=== PATIENT | male | born 1935 | race Caucasian/White ===

== ENCOUNTER 2017-05-18 17:46 | Observation (INO) ==
[2017-05-18] MEDS ORDERED: Levofloxacin 750 MG/150 ML 750 MG/150 ML BAG IVPB ONE (17:59)
[2017-05-18] MEDS ORDERED: 0.9 % Sodium Chloride 1,000 ML IVC ONE (17:59)
[2017-05-18 18:36] LABS: Basophils % 0.6 %; Eosinophils % 1.1 %; Hematocrit 34.2 % (37.5-50.1); Hemoglobin 11.9 g/dL (12.9-16.9); Immature Granulocytes % 0.3 % (0-4); Lymphocytes # 0.9 K/mcL (0.6-4.6); Lymphocytes % 24.7 %; Mean Corpuscular HGB Conc 34.8 g/dL (31.6-35.5); Mean Corpuscular Volume 86.1 fL (83.0-100.0); Mean Platelet Volume 10.9 fL (9.4-12.4); Monocytes # 0.5 K/mcL (0.0-1.3); Monocytes % 14.2 %; Neutrophils # 2.1 K/mcL (1.6-8.9); Platelet Count 174 K/mcL (140-400); Red Blood Count 3.97 M/mcL (4.19-5.50); Red Cell Distribution Width 13.3 % (11.5-14.5); Segmented Neutrophils % 59.1 %
[2017-05-18 18:42] LABS: INR 1.5; Prothrombin Time 16.1 Seconds (9.4-12.1)
[2017-05-18 18:49] LABS: VBG PCO2 41.9 mmHg (41-51); VBG PH 7.38 pH Units (7.32-7.42)
[2017-05-18 18:50] LABS: VBG HCO3 24.8 mEq/L (21-27); VBG PO2 32.7 mmHg (25-40)
[2017-05-18 18:54] LABS: Alanine Aminotransferase 16 Units/L (0-55); Albumin 3.6 g/dL (3.5-5.0); Albumin/Globulin Ratio 1.1 (1.1-2.2); Alkaline Phosphatase 103 Units/L (38-126); Aspartate Amino Transferase 33 Units/L (5-34); BUN/Creatinine Ratio 19 (6-26); Bilirubin,Direct 0.4 mg/dL (0.0-0.5); Bilirubin,Indirect 0.2 mg/dL (0.0-1.2); Bilirubin,Total 0.6 mg/dL (0.2-1.2); Blood Urea Nitrogen 15 mg/dL (8-26); Calcium 10.1 mg/dL (8.6-10.8); Carbon Dioxide 22 mEq/L (19-29); Chloride 103 mEq/L (98-109); Globulin 3.4 g/dL (2.4-3.5); Glucose 97 mg/dL (70-99); Osmolality,Calculated 283 (280-300); Potassium 3.8 mEq/L (3.5-4.5); Sodium 136 mEq/L (136-145); eGFR For African Americans > 60 (> 60); eGFR For Non-African Americans > 60 (> 60)
--- NOTE | 2017-05-18 18:55 | Emergency Department Note ---
Disposition Clinical Impression: Pneumonia Qualifiers: Pneumonia type: due to unspecified organism Laterality: right Lung location: lower lobe of lung Qualified Code(s): J18.1 - Lobar pneumonia, unspecified organism Disposition: Admitted As Inpatient Referrals: Heriberto Rice MD [Primary Care Provider] - Time of Disposition: 22:16 Fever HPI - General Stated Complaint: infection Time Seen by Provider: 05/18/17 17:59 Source: patient Mode of arrival: ambulatory Limitations: no limitations Nursing Notes Reviewed: Yes Vital Signs Reviewed: Yes - History of Present Illness HPI Narrative: Patient was sent over from Dr. Rice's office where he had been evaluated for fever and just not acting right. Dr. Rice called me indicating that this patient was weak and ataxic in his office. Seem to be just not acting right all the way was not frankly confused. When the patient arrived he told me that he had had a fever for the last 3 days that was highest in the morning and up to 101.4 yesterday he reports that he just has not felt well. He reports weakness and malaise. Has not really gotten out of bed. Did not have any appetite. He denies any specific focus of infection. He denies cough, headache, nasal drainage or sputum production, shortness of breath, chest pain, nausea, vomiting, or any dysuria or dark looking urine. He denies any skin changes or rash Pt Subjective Complaint: fever, malaise, weakness, rigors Onset (ago): day(s) (3) Maximum Temperature Reported: 101.4 F Temperature Source: oral Context: spontaneous Associated symptoms: Reports: chills, rigors, myalgias, night sweats. Denies: rhinorrhea, nasal congestion, sore throat, stiff neck, chest pain, abdominal pain, nausea, vomiting, rash, altered mental status Improves with: nothing Worsens with: time of day Treatments prior to arrival fever: none - Related Data Home Medications Medication Instructions Recorded Confirmed Gemfibrozil [Lopid] 600 mg PO BIDWM 07/20/15 05/18/17 Lisinopril [Zestril] 20 mg PO DAILY 07/20/15 05/18/17 Metoprolol [Lopressor] 50 mg PO BID 07/20/15 05/18/17 TraMADol [Ultram] 50 mg PO PRN PRN 07/20/15 05/18/17 Rivaroxaban [Xarelto] 20 mg PO DAILY 05/18/17 05/18/17 Allergies Allergy/AdvReac Type Severity Reaction Status Date / Time No Known Allergies Allergy Verified 05/18/17 18:29 All systems ED: reviewed and negative except as stated. Constitutional: Reports: fever, chills, weakness Fever PMH - Past Medical History Medical history: Reports: arthritis, atrial fibrillation, cancer, hepatitis, hypertension, valvular heart disease Surgical history: Reports: pacemaker/AICD Psychiatric history: Reports: no psych history - Social History Smoking Status: Former smoker Alcohol use: Reports: none Drug use: Reports: none Physical Exam Constitutional: Patient is oriented to person, place, and time. Skin color is pink. Appears well hydrated, body habitus normal appears younger than his stated age . Non toxic appearing. Head: Normocephalic and atraumatic. External ear exam normal Nose: Nose normal. Mouth/Throat: Uvula is midline, oropharynx is clear and moist and mucous membranes are normal. Eyes: Conjunctivae nl, extraocular motions and lids are normal. Pupils are equal , round, and reactive to light. Neck: Normal range of motion and phonation normal. Neck supple. Cardiovascular: Rapid rate, regular rhythm, normal heart sounds. Pulmonary/Chest: No Respiratory distress. Respiratory Effort normal and breath sounds clear. Abdominal: Soft. Normal appearance and bowel sounds are normal. no tenderness, no masses, no guarding, no rebound Musculoskeletal: Good distal pulses. Soft compartments. Brisk cap refill. Extremities: Normal range of motion.Intact peripheral pulses. No Edema. Extremity skin color nl, no calf tenderness or palpable cords. Neurological: GCS 15. Patient speech is clear and articulate. He has good strength in his arms and legs. When he gets up to walk though he seems weak and when he got to the bathroom he could not get off the toilet without significant assistance and he was unsteady to walk on his own. Krystal states this is very unusual for him. He lives at home and functions well. Patient is alert and oriented without evidence of obvious motor deficits Skin: Skin is warm, dry and intact. color is normal, cap refill is quick Psychiatric: Patient has normal mood and affect. Patient speech is normal and behavior is normal. Thought content normal. - General Limitations: no limitations General appearance: alert, in no apparent distress Course Vital Signs Temperature 97.8 F 05/18/17 17:59 Pulse Rate 77 05/18/17 17:59 Respiratory Rate 14 05/18/17 17:59 Blood Pressure 164/94 05/18/17 17:59 O2 Sat by Pulse Oximetry 99 05/18/17 17:59 Temperature 97.9 F 05/18/17 18:27 Pulse Rate 87 05/18/17 18:27 Respiratory Rate 16 05/18/17 18:27 Blood Pressure 154/72 05/18/17 18:27 O2 Sat by Pulse Oximetry 100 05/18/17 18:27 Oxygen Delivery Oxygen Delivery Room Air Fever - Medical Records Medical records reviewed: Yes I reviewed the patient's medical records. - Lab Data Lab results reviewed: Yes I reviewed the patient's lab results. Result diagrams: 05/18/17 18:30 05/18/17 18:30 Lab Results 05/18/17 05/18/17 05/18/17 Range/Units 18:30 18:30 18:30 WBC 3.6 L (4.3-11.1) K/mcL RBC 3.97 L (4.19-5.50) M/mcL Hgb 11.9 L (12.9-16.9) g/dL Hct 34.2 L (37.5-50.1) % MCV 86.1 (83.0-100.0) fL MCH 30.0 (28.0-33.3) pg MCHC 34.8 (31.6-35.5) g/dL RDW 13.3 (11.5-14.5) % Plt Count 174 (140-400) K/mcL MPV 10.9 (9.4-12.4) fL Immature Gran % 0.3 (0-4) % Seg Neutrophils % 59.1 % Lymphocytes % 24.7 % Monocytes % 14.2 % Eosinophils % 1.1 % Basophils % 0.6 % Neutrophils # 2.1 (1.6-8.9) K/mcL Lymphocytes # 0.9 (0.6-4.6) K/mcL Monocytes # 0.5 (0.0-1.3) K/mcL Eosinophils # 0.0 (0.0-0.6) K/mcL Basophils # 0.0 (0.0-0.2) K/mcL PT 16.1 H (9.4-12.1) Seconds INR 1.5 VBG pH (7.32-7.42) pH Units VBG pCO2 (41-51) mmHg VBG pO2 (25-40) mmHg VBG HCO3 (21-27) mEq/L VBG Lactic Acid (0.5-2.2) mmol/L Sodium 136 (136-145) mEq/L Potassium 3.8 (3.5-4.5) mEq/L Chloride 103 (98-109) mEq/L Carbon Dioxide 22 (19-29) mEq/L BUN 15 (8-26) mg/dL Creatinine 0.81 (0.72-1.25) mg/dL Est GFR ( Amer) > 60 (> 60) Est GFR (Non-Af Amer) > 60 (> 60) BUN/Creatinine Ratio 19 (6-26) Glucose 97 (70-99) mg/dL Calculated Osmolality 283 (280-300) Calcium 10.1 (8.6-10.8) mg/dL Total Bilirubin 0.6 (0.2-1.2) mg/dL Direct Bilirubin 0.4 (0.0-0.5) mg/dL Indirect Bilirubin 0.2 (0.0-1.2) mg/dL AST 33 (5-34) Units/L ALT 16 (0-55) Units/L Alkaline Phosphatase 103 (38-126) Units/L Troponin I (0-0.03) ng/mL Serum Total Protein 7.0 (6.0-8.3) g/dL Albumin 3.6 (3.5-5.0) g/dL Globulin 3.4 (2.4-3.5) g/dL Albumin/Globulin Ratio 1.1 (1.1-2.2) Urine Color (Yellow) Urine Clarity (Clear) Urine pH (5.0-8.0) pH Units Ur Specific Ora (1.010-1.025) Urine Protein (Neg-Trace) mg/dL Urine Glucose (UA) (Normal) mg/dL Urine Ketones (Negative) mg/dL Urine Blood (Negative) Urine Nitrite (Negative) Urine Bilirubin (Negative) Urine Urobilinogen (Normal) mg/dL Ur Leukocyte Esterase (Negative) Urine Microscopic RBC (0-3) per hpf Urine Microscopic WBC (0-3) per hpf Ur Squamous Epith Cells (None-Few) per lpf Ur Culture Indicated? (NO) 05/18/17 05/18/17 05/18/17 Range/Units 18:30 18:30 19:30 WBC (4.3-11.1) K/mcL RBC (4.19-5.50) M/mcL Hgb (12.9-16.9) g/dL Hct (37.5-50.1) % MCV (83.0-100.0) fL MCH (28.0-33.3) pg MCHC (31.6-35.5) g/dL RDW (11.5-14.5) % Plt Count (140-400) K/mcL MPV (9.4-12.4) fL Immature Gran % (0-4) % Seg Neutrophils % % Lymphocytes % % Monocytes % % Eosinophils % % Basophils % % Neutrophils # (1.6-8.9) K/mcL Lymphocytes # (0.6-4.6) K/mcL Monocytes # (0.0-1.3) K/mcL Eosinophils # (0.0-0.6) K/mcL Basophils # (0.0-0.2) K/mcL PT (9.4-12.1) Seconds INR VBG pH 7.38 (7.32-7.42) pH Units VBG pCO2 41.9 (41-51) mmHg VBG pO2 32.7 (25-40) mmHg VBG HCO3 24.8 (21-27) mEq/L VBG Lactic Acid 1.2 (0.5-2.2) mmol/L Sodium (136-145) mEq/L Potassium (3.5-4.5) mEq/L Chloride (98-109) mEq/L Carbon Dioxide (19-29) mEq/L BUN (8-26) mg/dL Creatinine (0.72-1.25) mg/dL Est GFR ( Amer) (> 60) Est GFR (Non-Af Amer) (> 60) BUN/Creatinine Ratio (6-26) Glucose (70-99) mg/dL Calculated Osmolality (280-300) Calcium (8.6-10.8) mg/dL Total Bilirubin (0.2-1.2) mg/dL Direct Bilirubin (0.0-0.5) mg/dL Indirect Bilirubin (0.0-1.2) mg/dL AST (5-34) Units/L ALT (0-55) Units/L Alkaline Phosphatase (38-126) Units/L Troponin I 0.00 (0-0.03) ng/mL Serum Total Protein (6.0-8.3) g/dL Albumin (3.5-5.0) g/dL Globulin (2.4-3.5) g/dL Albumin/Globulin Ratio (1.1-2.2) Urine Color Yellow (Yellow) Urine Clarity Clear (Clear) Urine pH 5.5 (5.0-8.0) pH Units Ur Specific Ora <= 1.005 L (1.010-1.025) Urine Protein Negative (Neg-Trace) mg/dL Urine Glucose (UA) Normal (Normal) mg/dL Urine Ketones Negative (Negative) mg/dL Urine Blood Trace-intact H (Negative) Urine Nitrite Negative (Negative) Urine Bilirubin Negative (Negative) Urine Urobilinogen Normal (Normal) mg/dL Ur Leukocyte Esterase Negative (Negative) Urine Microscopic RBC 0-3 (0-3) per hpf Urine Microscopic WBC 0-3 (0-3) per hpf Ur Squamous Epith Cells Few (None-Few) per lpf Ur Culture Indicated? NO (NO) - Radiology Data Radiology results reviewed: Yes I reviewed the patient's radiology results. - EKG Data EKG attestation: Yes I reviewed and interpreted this EKG. Rate: normal Rhythm: A.Fib [place]/QRS: normal Interpretation: no acute changes
[2017-05-18 19:43] LABS: Bilirubin,Urine Negative (Negative); Blood,Urine Trace-intact (Negative); Clarity,Urine Clear (Clear); Color,Urine Yellow (Yellow); Glucose,Urine (UA) Normal (Normal); Ketones,Urine Negative (Negative); Leukocyte Esterase,Urine Negative (Negative); Nitrite,Urine Negative (Negative); PH,Urine 5.5 pH Units (5.0-8.0); Protein,Urine Negative (Neg-Trace); Specific Gravity,Urine <= 1.005 (1.010-1.025); Urobilinogen,Urine Normal (Normal)
[2017-05-18 19:46] LABS: RBC,Urine 0-3 per hpf (0-3); Squamous Epithelial Cell,Urine Few per lpf (None-Few); WBC,Urine 0-3 per hpf (0-3)
[2017-05-18] MEDS ORDERED: Ondansetron ODT 4 MG TAB.RAPDIS SL PRN (23:05)
[2017-05-18] MEDS ORDERED: traMADol 50 MG TABLET PO PRN (23:05)
[2017-05-18] MEDS ORDERED: Acetaminophen 325 MG TABLET PO PRN (23:05)
[2017-05-19] MEDS: Pantoprazole 40 MG VIAL IVP SCH ×2 (00:20→08:29)
[2017-05-19] MEDS: 0.9 % Sodium Chloride 1,000 ML IVC SCH ×2 (00:23→13:49)
[2017-05-19 05:11] LABS: Basophils % 0.2 %; Hematocrit 31.6 % (37.5-50.1); Hemoglobin 11.3 g/dL (12.9-16.9); Immature Granulocytes % 0.2 % (0-4); Lymphocytes # 0.6 K/mcL (0.6-4.6); Mean Corpuscular HGB Conc 35.8 g/dL (31.6-35.5); Mean Corpuscular Hemoglobin 30.1 pg (28.0-33.3); Mean Platelet Volume 10.6 fL (9.4-12.4); Monocytes # 0.5 K/mcL (0.0-1.3); Monocytes % 10.6 %; Neutrophils # 3.4 K/mcL (1.6-8.9); Platelet Count 159 K/mcL (140-400); Red Blood Count 3.76 M/mcL (4.19-5.50); Red Cell Distribution Width 13.1 % (11.5-14.5)
[2017-05-19 05:28] LABS: Alanine Aminotransferase 14 Units/L (0-55); Albumin 3.2 g/dL (3.5-5.0); Albumin/Globulin Ratio 1.1 (1.1-2.2); Alkaline Phosphatase 89 Units/L (38-126); Aspartate Amino Transferase 33 Units/L (5-34); BUN/Creatinine Ratio 15 (6-26); Bilirubin,Total 0.5 mg/dL (0.2-1.2); Blood Urea Nitrogen 12 mg/dL (8-26); Calcium 9.4 mg/dL (8.6-10.8); Carbon Dioxide 19 mEq/L (19-29); Chloride 106 mEq/L (98-109); Glucose 101 mg/dL (70-99); Osmolality,Calculated 282 (280-300); Potassium 3.2 mEq/L (3.5-4.5); Sodium 136 mEq/L (136-145); Total Protein 6.2 g/dL (6.0-8.3); eGFR For African Americans > 60 (> 60); eGFR For Non-African Americans > 60 (> 60)
[2017-05-19] MEDS: Lisinopril 20 MG TABLET PO SCH (08:29)
[2017-05-19] MEDS: *HR* Rivaroxaban 10 MG TABLET PO SCH (08:29)
--- NOTE | 2017-05-19 14:28 | Internal Med History&Physical ---
Date of Encounter: 05/19/17 Time of Encounter: 14:28 Assessment and Plan (1) Pneumonia Current visit: Yes Status: Acute He was confused at the office he had trouble walking he could not stand up he was unsafe to go home he had a fever he was sent over for admission. He is not safe to go home he is a high risk for falls. High risk for further deterioration of his status keep him on Levaquin. Blood cultures are pending he continues to have fevers Qualifiers: Pneumonia type: due to unspecified organism Laterality: right Lung location: lower lobe of lung Qualified Code(s): J18.1 - Lobar pneumonia, unspecified organism (2) History of prostate cancer Current visit: Yes Status: Acute (3) Essential (primary) hypertension Current visit: Yes Status: Acute We will continue home medicines will continue to follow. (4) S/P placement of cardiac pacemaker Current visit: Yes Status: Acute (5) Afib Current visit: Yes Status: Acute He is anticoagulated on Cymbalta he takes metoprolol for rate control we will continue to follow this. He has been a little tachycardia at times will have to watch for A. fib with RVR Qualifiers: Atrial fibrillation type: chronic Qualified Code(s): I48.2 - Chronic atrial fibrillation (6) Ascending aorta dilation Current visit: Yes Status: Acute (7) Arthritis Current visit: Yes Status: Acute (8) Altered mental state Current visit: Yes Status: Acute He had an negative head CT in the emergency room. When he talks he does not always answer questions he talks in circles. We will continue to follow this we will treat his pneumonia and hopefully this will resolve. Qualifiers: Altered mental status type: delirium Qualified Code(s): R41.0 - Disorientation, unspecified Internal Medicine - H&P: HPI Chief complaint: "Lester sent me here" Admitted From: Home Plans for Post Hospital Care: Home History of present illness: Mr. Levy is a 82 year old male With a past medical history of atrial fibrillation and a pacemaker and hypertension. He presented to the office with a 3 day history of fevers up to 101.4. He had not been eating for several days he had been drinking he did not feel well he did not feel like himself he had been off balance he had been dizzy and lightheaded. He started coughing last night he does not have any sputum he denies wheezing and shortness of breath. He was chilled he keeps his house at 74 degrees because he needed the warmth he was under a blanket his legs were freezing. He came in to see Dr. Rice he was not talking like his usual self he was acting different he was very unsteady he was off balance almost falling down when he got up to shake his hand. Krystal sent him over to be evaluated. He was noted to have a fever neutropenia a right basilar infiltrate on x-ray. He was admitted for IV antibiotics and treatment of his pneumonia his unsteady gait his mental status changes. He will likely require at least a 2-3 night admission to be afebrile. And get him back to where he is steady on his feet. Past Med Surg Social Fam HX - Past Medical History Medical history: arthritis, atrial fibrillation, cancer (prostate), hypertension , other (seborrheic keratosis, Actinic keratosis, hx of basal cell, left rib fracture 01/2017, bilateral foot drop) Psychiatric history: no psych history - Past Surgical History Surgical History: cataract (bilateral), orthopedic, other (right ulnar nerve release), pacemaker/AICD (pacer 2004 ), other (prostate cancer 1999, pilonidal cyst age 21,) - Social History Smoking Status: Former smoker Smokeless Tobacco Status: No Alcohol use: none Drug use: none - Family History Mother Living Status: Age at : 100 Hx Family Cardiac Disorders: Yes (htn) Father Living Status: Hx Family Cancer: Yes (prostate cancer) Internal Medicine - H&P: Meds Gemfibrozil [Lopid] 600 mg PO BIDWM 07/20/15 [History] Lisinopril [Zestril] 20 mg PO DAILY 07/20/15 [History] Metoprolol [Lopressor] 50 mg PO BID 07/20/15 [History] TraMADol [Ultram] 50 mg PO PRN PRN 07/20/15 [History] Rivaroxaban [Xarelto] 20 mg PO DAILY 05/18/17 [History] Allergies diltiazem Adverse Reaction (Verified 05/19/17 15:03) vision changes All Systems PM: A 10-system review of systems was performed and is negative for pertinent findings except as documented above in the HPI. - Constitutional Constitutional: anorexia, chills, fatigue, fever(s), malaise, weakness ( Generalized), no night sweats - EENT Eyes: no blurry vision, no change in vision - Cardiovascular Cardiovascular ROS IM: irregular heart rhythm, lightheadedness, no chest pain, no palpitations - Respiratory Respiratory: cough, no wheezing, no excessive phlegm production - Gastrointestinal Gastrointestinal: no abdominal pain, no constipation, no diarrhea, no hematochezia, no loose stools, no melena, no vomiting - Genitourinary Genitourinary ROS male: no dysuria, no hematuria, no urinary frequency, no urinary incontinence - Musculoskeletal Musculoskeletal ROS IM: back pain (Chronic), muscle weakness (Bilateral foot drop), no numbness - Integumentary Integumentary IM: no pruritus, no rash - Neurological Neurological ROS: abnormal gait, no headache(s) - Psychiatric Psychiatric: confusion - Endocrine Endocrine IM: fatigue - Constitutional Vitals: Temp Pulse Resp BP Pulse Ox 98.2 F 83 16 130/81 99 05/19/17 11:55 05/19/17 11:55 05/19/17 11:55 05/19/17 11:55 05/19/17 11:55 General appearance: Present: A&O X 3, no acute distress. Absent: answers questions appropriately (Goes on a lot of tangents) - Head Head exam: Present: atraumatic - Neck Neck exam general surgery: Present: supple, trachea midline. Absent: lymphadenopathy - Respiratory Respiratory exam: Present: rhonchi (Right lower lobe). Absent: wheezes - Cardiovascular Cardiovascular exam: Present: irregular rhythm, systolic murmur - GI/Abdominal GI/Abdominal exam: Present: normal bowel sounds, soft, no peritoneal signs. Absent: guarding, rebound - Extremities Exam Extremities exam: Present: normal capillary refill, warm. Absent: pedal edema - Neurological Exam Neurological exam: Present: abnormal gait (Foot drop bilateral lower extremities ) - Skin Skin exam: Present: dry, warm. Absent: rash Internal Med - H&P Results - Labs CBC & Chem 7: 05/19/17 05:00 05/19/17 05:00 Labs: Short CBC 05/19/17 Range/Units 05:00 WBC 4.5 (4.3-11.1) K/mcL Hgb 11.3 L (12.9-16.9) g/dL Hct 31.6 L (37.5-50.1) % Plt Count 159 (140-400) K/mcL Neutrophils # 3.4 (1.6-8.9) K/mcL BMP 05/19/17 05:00 Sodium 136 Potassium 3.2 L Chloride 106 Carbon Dioxide 19 BUN 12 Creatinine 0.78 Glucose 101 H Calcium 9.4 Liver Function 05/19/17 Range/Units 05:00 Total Bilirubin 0.5 (0.2-1.2) mg/dL AST 33 (5-34) Units/L ALT 14 (0-55) Units/L Alkaline Phosphatase 89 (38-126) Units/L Albumin 3.2 L (3.5-5.0) g/dL - VTE Reasons for not Prescribing Prophylaxis: Not indicated-Anticoagulated or INR therapeutic
[2017-05-19] MEDS: Levofloxacin 500 MG/100 ML 500 MG/100 ML BAG IVPB SCH (16:48)
[2017-05-20] MEDS: 0.9 % Sodium Chloride 1,000 ML IVC SCH (03:41)
[2017-05-20 05:35] LABS: Basophils % 0.6 %; Eosinophils # 0.1 K/mcL (0.0-0.6); Eosinophils % 1.7 %; Hematocrit 30.9 % (37.5-50.1); Hemoglobin 10.8 g/dL (12.9-16.9); Immature Granulocytes % 0.2 % (0-4); Lymphocytes # 1.3 K/mcL (0.6-4.6); Mean Corpuscular Hemoglobin 29.5 pg (28.0-33.3); Mean Corpuscular Volume 84.4 fL (83.0-100.0); Mean Platelet Volume 11.1 fL (9.4-12.4); Monocytes # 0.6 K/mcL (0.0-1.3); Monocytes % 12.8 %; Neutrophils # 2.6 K/mcL (1.6-8.9); Platelet Count 166 K/mcL (140-400); Red Blood Count 3.66 M/mcL (4.19-5.50); Red Cell Distribution Width 13.2 % (11.5-14.5); Segmented Neutrophils % 55.7 %
[2017-05-20 05:49] LABS: BUN/Creatinine Ratio 17 (6-26); Blood Urea Nitrogen 12 mg/dL (8-26); Calcium 9.4 mg/dL (8.6-10.8); Carbon Dioxide 21 mEq/L (19-29); Chloride 110 mEq/L (98-109); Glucose 99 mg/dL (70-99); Osmolality,Calculated 290 (280-300); Potassium 3.5 mEq/L (3.5-4.5); Sodium 140 mEq/L (136-145); eGFR For African Americans > 60 (> 60); eGFR For Non-African Americans > 60 (> 60)
[2017-05-20] MEDS: *HR* Rivaroxaban 10 MG TABLET PO SCH (09:37)
[2017-05-20] MEDS: Lisinopril 20 MG TABLET PO SCH (09:37)
[2017-05-20] MEDS: Pantoprazole 40 MG VIAL IVP SCH (09:38)
[2017-05-20 11:39] VITALS: BP 114/59
--- NOTE | 2017-05-20 12:08 | Discharge Summary ---
Date of Encounter: 05/21/17 Time of Encounter: 12:06 - Discharge Diagnosis (1) Pneumonia Priority: Primary Status: Acute Comments: he was afebrile for 24 hours. his wbc count was normal. his oxygen sat was ok. he was sent home on levaquin and instructed to follow up in office or sooner if any changes Qualifiers: Pneumonia type: due to unspecified organism Laterality: right Lung location: lower lobe of lung Qualified Code(s): J18.1 - Lobar pneumonia, unspecified organism (2) History of prostate cancer Priority: Secondary Status: Acute Comments: not an active problem this admissio (3) Essential (primary) hypertension Priority: Secondary Status: Acute Comments: this remained stable on his home medicatio (4) S/P placement of cardiac pacemaker Priority: Secondary Status: Acute (5) Afib Priority: Secondary Status: Acute Comments: he was in afib but remained rate controlled on his home medication. he was anticoagulated on the xarelto Qualifiers: Atrial fibrillation type: chronic Qualified Code(s): I48.2 - Chronic atrial fibrillation (6) Ascending aorta dilation Priority: Secondary Status: Acute Comments: not an active problem this admission (7) Arthritis Priority: Secondary Status: Acute Comments: this is a chronic problem and not new. nothing above his baseline (8) Altered mental state Priority: Secondary Status: Acute Comments: this cleared on the second day of admission. his ct scan was negative. he was able to ambulate in the halls at his baseline with his bilateral foot drop. he is getting afos on sunday Qualifiers: Altered mental status type: delirium Qualified Code(s): R41.0 - Disorientation, unspecified - Discharge Medications Prescriptions: Levofloxacin [Levaquin] 500 mg PO DAILY #5 tablet Home Medications: Gemfibrozil [Lopid] 600 mg PO BIDWM 07/20/15 [History] Lisinopril [Zestril] 20 mg PO DAILY 07/20/15 [History] Metoprolol [Lopressor] 50 mg PO BID 07/20/15 [History] TraMADol [Ultram] 50 mg PO PRN PRN 07/20/15 [History] Rivaroxaban [Xarelto] 20 mg PO DAILY 05/18/17 [History] Docusate [Colace] 100 mg PO BID PRN 05/20/17 [Rx] Levofloxacin [Levaquin] 500 mg PO DAILY #5 tablet 05/20/17 [Rx] Potassium Chloride 40 meq PO ONCE 05/20/17 [Rx] Allergies/Adverse Reactions: Allergies diltiazem Adverse Reaction (Verified 05/19/17 15:03) vision changes Date of admission: 05/18/17 23:02 Primary care physician: Heriberto Rice MD - Patient Status Disposition: Home, Self-Care Condition: Good Functional capacity at discharge: independent ambulation Overall status at discharge: patient is progressing back to baseline - Discharge Instructions Instructions: Atrial Fibrillation (DC), Peripheral Vascular Disorders (DC), Chronic Hypertension (DC), Pneumonia (DC) Follow Up With: Heriberto Rice MD [Primary Care Provider] - 05/24/17 3:00 pm Forms: ED Satisfaction Letter - Diet and Activity Activity: increase activity as tolerated Diet: low fat, low cholesterol Interval History: he presented from the office with a fever, confusion, abnormal gait and not acting his usual self. in the er he had a cxr that showed a rll infiltrate. blood cultures are negative at this time but not 48 hours old. he intial fever has resolved. his first wbc count was supressed but it now normal. he was started on levaquin. he will be sent home on this. he is very anxious to get out of the hospital due to concerns with payment and being on the observation status. he had difficulty ambulating on presentation. that is now resolved to his baseline with his bilateral foot drop. he is getting afo's on sunday. he was in afib and rate controlled. he was anticoagulated on xarelto. he was progressing back to his baseline and was felt safe for discharge. he was sent home in a stable condition Hospital course: Mr. Levy is a 82 year old male - Time Spent with Patient Total time spent providing and/or coordinating discharge services: - Constitutional Vitals: Temp Pulse Resp BP Pulse Ox 98.0 F 76 18 114/59 99 05/20/17 11:38 05/20/17 11:38 05/20/17 11:38 05/20/17 11:38 05/20/17 11:38 General appearance: Present: A&O X 3, no acute distress. Absent: answers questions appropriately (Goes on a lot of tangents) - Head Head exam: Present: atraumatic, normocephalic - Neck Neck exam general surgery: Present: trachea midline. Absent: lymphadenopathy, thyromegaly - Respiratory Respiratory exam: Present: rhonchi (right base) - Cardiovascular Cardiovascular exam: Present: irregular rhythm, systolic murmur - GI/Abdominal GI/Abdominal exam: Present: normal bowel sounds, soft, no peritoneal signs. Absent: mass, rebound, tenderness - Extremities Exam Extremities exam: Present: normal capillary refill, warm. Absent: pedal edema - Skin Skin exam: Present: dry, warm. Absent: rash - VTE Reasons for not Prescribing Prophylaxis: Not indicated-Anticoagulated or INR therapeutic
[2017-05-20] MEDS: Levofloxacin 500 MG/100 ML 500 MG/100 ML BAG IVPB SCH (12:29)
--- NOTE | 2017-05-20 18:10 | Electrocardiograph Report ---
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
== END 2017-05-20 14:00 | disposition home or self-care (01) ==
LOC: INPGRE 17:46 → EMEROOGRE 17:46 → INPGRE 23:23
PROVIDERS: ADMIT Family Medicine; ATTEND Family Medicine